=== PATIENT | male | born 1985 | race Two or more races ===

== ENCOUNTER 2023-02-09 04:45 | Emergency (ER) | payer OTHER ==
[~2023-02-09] VITALS: Ht 175.3 cm; Wt 95.3 kg
[2023-02-09] MEDS ORDERED: ALPRAZOLAM1 MG PO (04:56)
== END 2023-02-09 10:21 | disposition home or self-care (01) ==
LOC: ER 04:45
DX: S00.93XA Contusion of unspecified part of head, initial encounter (principal); S40.012A Contusion of left shoulder, initial encounter; S10.93XA Contusion of unspecified part of neck, initial encounter; V49.9XXA Car occupant (driver) (passenger) injured in unspecified traffic accident, initial encounter; Y93.9 Activity, unspecified; Y92.413 State road as the place of occurrence of the external cause; Y99.9 Unspecified external cause status